=== PATIENT | female | born 1950 | race Caucasian/White ===

== ENCOUNTER 2017-08-01 08:57 | Day surgery (SDC) | payer MEDICARE, BC ==
[~2017-08-01 08:57] MED LIST: LIDOCAINE HCL 1% MPF SOL ONE; PROPOFOL 500 MG/50 ML EMU IV ONE
[2017-08-01 10:27] VITALS: TEMP 97
[2017-08-01 11:00] VITALS: BP 152/87; PULSE 71; RESP 18; O2SAT 96
== END 2017-08-01 11:16 | disposition home or self-care (01) | DRG 392 ==
LOC: SURG 08:57
PROVIDERS: ATTEND Internal Medicine Gastroenterology
DX: R13.10 Dysphagia, unspecified (principal); Q39.8 Other congenital malformations of esophagus; K21.9 Gastro-esophageal reflux disease without esophagitis; K44.9 Diaphragmatic hernia without obstruction or gangrene; K31.7 Polyp of stomach and duodenum
CPT/HCPCS: J2001; J2704

== ENCOUNTER 2017-09-11 20:10 | Emergency (ER) | payer MEDICARE, BC ==
[2017-09-11 20:20] VITALS: RESP 20; TEMP 97.7; O2SAT 97
[2017-09-11] MEDS ORDERED: DIPHENHYDRAMINE 50 MG/ML SOL IM ONE (20:43)
[2017-09-11] MEDS ORDERED: DIPHENHYDRAMINE 50 MG/ML SOL ONE (20:45)
[2017-09-11 21:12] VITALS: PULSE 72
[2017-09-11 21:13] VITALS: BP 138/78
== END 2017-09-11 21:30 | disposition home or self-care (01) | DRG 607 ==
LOC: ED 20:10
DX: L50.9 Urticaria, unspecified (principal); L29.9 Pruritus, unspecified
CPT/HCPCS: 99283; J1200